=== PATIENT | male | born 1980 | race American Indian/Alaskan Native ===

== ENCOUNTER 2018-01-31 16:03 | Emergency (ER) | payer SELFPAY ==
[2018-01-31] MEDS ORDERED: ADRENALINE P/F SUB-Q ONE (16:13)
[2018-01-31] MEDS ORDERED: BENADRYL IV ONE (16:13)
[2018-01-31] MEDS ORDERED: HYDROCORTISONE CR TP ONE (16:13)
[2018-01-31] MEDS ORDERED: PEPCID IV ONE (16:14)
[2018-01-31] MEDS ORDERED: SOLU-Medrol IV ONE ×2 (16:14→20:08)
[2018-01-31] MEDS ORDERED: MOTRIN PO ONE ×2 (16:15→16:16)
--- NOTE | 2018-01-31 16:19 | Emergency Department Report ---
ED Allergic Reaction HPI - General Stated complaint: ALLERGIC REACTION Time Seen by Provider: 01/31/18 16:09 Source: patient, EMS - History of Present Illness Initial Comments: Mr. Magana is 37 yo male healthy without significant past medical history presents with allergic reaction. While performing yard work, he He was stung yellow jackets on his face and back. He has severe left facial swelling involving his lip and cheek. He has hives on his back. Multiple stings at least 10 No hx of allergic reaction or anaphylaxis to insect stings or food. Mild pain MD Complaint: allergic reaction, hives, facial swelling -: Sudden, minutes(s) Exposure: insect bite Symptoms: rash, facial swelling, lip swelling, orolingual swelling. denies: difficulty swallowing, difficulty breathing, hoarseness, syncopy, dizziness, nausea, vomiting, abdominal pain Severity: severe Treatment Prior to Arrival: benadryl Previous Allergy History: none - Related Data Previous Rx's Medication Instructions Recorded Last Taken Type EPINEPHrine [Epipen] 0.3 mg IJ ONCE PRN #1 auto.injct 01/31/18 Unknown Rx Famotidine 20 mg PO BID 3 Days #6 tablet 01/31/18 Unknown Rx diphenhydrAMINE [Benadryl CAP] 25 mg PO Q6HR 3 Days #12 capsule 01/31/18 Unknown Rx predniSONE [Deltasone] 3 tab PO QDAY 3 Days #9 tab 01/31/18 Unknown Rx Allergies Allergy/AdvReac Type Severity Reaction Status Date / Time No Known Allergies Allergy Unverified 08/30/15 17:49 ED Review of Systems ROS: Stated complaint: ALLERGIC REACTION Other details as noted in HPI Comment: All other systems reviewed and negative Respiratory: denies: cough Cardiovascular: denies: chest pain ED Past Medical Hx - Past Medical History Previous Medical History?: No - Surgical History Past Surgical History?: No - Social History Smoking Status: Never Smoker Substance Use Type: Alcohol, Marijuana 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 - Medications Home Medications: Home Medications Medication Instructions Recorded Confirmed Last Taken Type EPINEPHrine [Epipen] 0.3 mg IJ ONCE PRN #1 auto.injct 01/31/18 Unknown Rx Famotidine 20 mg PO BID 3 Days #6 tablet 01/31/18 Unknown Rx diphenhydrAMINE [Benadryl CAP] 25 mg PO Q6HR 3 Days #12 capsule 01/31/18 Unknown Rx predniSONE [Deltasone] 3 tab PO QDAY 3 Days #9 tab 01/31/18 Unknown Rx ED Physical Exam - General General appearance: alert, in no apparent distress, other (severe facial swelling involving upper lip and left cheek no stinger note) - Head Head exam: Present: atraumatic, normocephalic - Eye Eye exam: Present: normal appearance - ENT ENT exam: Present: mucous membranes moist - Neck Neck exam: Present: normal inspection. Absent: tenderness, meningismus - Respiratory Respiratory exam: Present: normal lung sounds bilaterally. Absent: respiratory distress, wheezes, rales, rhonchi, accessory muscle use, decreased breath sounds , prolonged expiratory - Cardiovascular Cardiovascular Exam: Present: regular rate, normal rhythm, normal heart sounds. Absent: bradycardia, tachycardia, systolic murmur, diastolic murmur, rubs, gallop - GI/Abdominal GI/Abdominal exam: Present: soft, normal bowel sounds. Absent: distended, tenderness, guarding, rebound - Rectal Rectal exam: Present: deferred - Extremities Exam Extremities exam: Present: normal inspection - Back Exam Back exam: Present: normal inspection - Neurological Exam Neurological exam: Present: alert, oriented X3 - Psychiatric Psychiatric exam: Present: normal affect, normal mood - Skin Skin exam: Present: warm, dry, other (urticaria localized to the back no urticaria involving arms/leg/anterior torso). Absent: rash - Other Other exam information: one area of redness at left forerm ED Course Vital Signs 01/31/18 01/31/18 01/31/18 16:10 16:18 16:30 Temperature 98.4 F 98 F Pulse Rate 84 79 Respiratory 14 18 14 Rate Blood Pressure 129/78 Blood Pressure [Left] O2 Sat by Pulse 98 98 98 Oximetry 01/31/18 01/31/18 16:45 17:00 Temperature Pulse Rate 78 75 Respiratory 16 16 Rate Blood Pressure Blood Pressure 131/66 123/75 [Left] O2 Sat by Pulse 98 100 Oximetry ED Medical Decision Making - Medical Decision Making allergic reaction to insect yellow hornet stings, no hypotension or airway involvement, has severe localized swelling at the site of the stings, has urticaria at the back, localized reaction multiple insect stings with localized allergic reaction, swelling of face did improve, no airway involvement rx: prednisone, famotidine, benadryl, epipen Critical care attestation.: If time is entered above; I have spent that time in minutes in the direct care of this critically ill patient, excluding procedure time. ED Disposition Clinical Impression: Allergic reaction to insect sting Disposition: [id number]-01 TO HOME OR SELFCARE Is pt being admited?: No Does the pt Need Aspirin: No Condition: Stable Instructions: Urticaria (ED) Prescriptions: diphenhydrAMINE [Benadryl CAP] 25 mg PO Q6HR 3 Days #12 capsule EPINEPHrine [Epipen] 0.3 mg IJ ONCE PRN #1 auto.injct PRN Reason: Allergic Reaction Famotidine 20 mg PO BID 3 Days #6 tablet predniSONE [Deltasone] 3 tab PO QDAY 3 Days #9 tab Time of Disposition: 20:11
[2018-01-31] MEDS ORDERED: ADRENALIN ONE (17:37)
[2018-01-31] MEDS ORDERED: NORCO 5/325 PO ONE (20:09)
[2018-01-31 20:27] VITALS: BP 103/73
== END 2018-01-31 20:27 | disposition home or self-care (01) ==
LOC: ED 16:03
DX: T63.481A Toxic effect of venom of other arthropod, accidental (unintentional), initial encounter (principal); F12.10 Cannabis abuse, uncomplicated; Y92.017 Garden or yard in single-family (private) house as the place of occurrence of the external cause
CPT/HCPCS: 96372; 96374; 96375; 96376; 99283; J0171; J1200; J2930; A6250

== ENCOUNTER 2019-02-03 19:59 | Emergency (ER) | payer SELFPAY ==
[2019-02-03] MEDS ORDERED: CARAFATE PO ONE (20:38)
[2019-02-03] MEDS ORDERED: TYLENOL PO ONE (20:38)
[2019-02-03] MEDS ORDERED: TORADOL IV ONE (20:38)
[2019-02-03] MEDS ORDERED: PEPCID IV ONE (20:38)
--- NOTE | 2019-02-03 20:39 | Emergency Department Report ---
ED Chest Pain HPI - General Chief Complaint: Chest Pain Stated Complaint: CHEST PAIN Time Seen by Provider: 02/03/19 20:15 Source: patient, EMS (ems notes not available at time of chart dictation), RN notes reviewed Mode of arrival: Stretcher Limitations: No Limitations - History of Present Illness Initial Comments: This is a pleasant 38-year-old gentleman, not known to this provider previously. The patient does not have a local primary care doctor. He denies past medical history. Patient presents to the ER with a complaint of nontraumatic left-sided chest wall pain. This pain is intermittent. It has been present approximately 40 minutes prior to arrival. It does not radiate to the back, arms and neck. There is no vomiting, diaphoresis or shortness of breath. There is no recent aspirin consumption. The patient denies DVT, pulmonary embolism risk factors. 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 He denies additional complaints at this time, with the exception of chronic nontraumatic left-sided knee aching and pain. There is no family history of heart disease, DVT, pulmonary embolus and that he is aware of. He reports having similar pain like this a few months ago, but did not seek medical attention as it resolved on its own. He does not have any additional complaints at this time. MD Complaint: chest pain -: Gradual Onset: during rest Pain Location: left chest Pain Radiation: none Severity scale (0 -10): 0 Quality: aching Consistency: intermittent Improves With: nothing Worsens With: nothing Aspirin use within the Past 7 Days: (0) No - Related Data On Oral Contraceptives: No Previous Rx's Medication Instructions Recorded Last Taken Type EPINEPHrine [Epipen] 0.3 mg IJ ONCE PRN #1 auto.injct 01/31/18 Unknown Rx Famotidine 20 mg PO BID 3 Days #6 tablet 01/31/18 Unknown Rx diphenhydrAMINE [Benadryl CAP] 25 mg PO Q6HR 3 Days #12 capsule 01/31/18 Unknown Rx predniSONE [Deltasone] 3 tab PO QDAY 3 Days #9 tab 01/31/18 Unknown Rx Aspirin [Aspirin BABY CHEW TAB] 81 mg PO QDAY #30 tab.chew 02/03/19 Unknown Rx Famotidine [Pepcid] 20 mg PO BID #30 tablet 02/03/19 Unknown Rx Ibuprofen [Motrin] 600 mg PO Q8H PRN #30 tablet 02/03/19 Unknown Rx Allergies Allergy/AdvReac Type Severity Reaction Status Date / Time No Known Allergies Allergy Unverified 08/30/15 17:49 Heart Score - HEART Score History: Slightly suspicious EKG: Non-specific Age: < 45 Risk factors: No known risk factors Troponin: < normal limit HEART Score: 1 - Critical Actions Critical Actions: 0-3 pts:0.9-1.7%risk of adverse cardiac event.Candidate for discharge ED Review of Systems ROS: Stated complaint: CHEST PAIN Other details as noted in HPI Constitutional: denies: fever Eyes: denies: eye discharge ENT: denies: epistaxis Respiratory: denies: cough, shortness of breath Cardiovascular: chest pain Gastrointestinal: denies: abdominal pain, nausea, vomiting Musculoskeletal: arthralgia Skin: denies: lesions Neurological: denies: weakness Psychiatric: denies: anxiety ED Past Medical Hx - Past Medical History Previous Medical History?: Yes Additional medical history: foliculitis, leg cramps - Surgical History Past Surgical History?: No - Social History Smoking Status: Former Smoker Substance Use Type: None - Medications Home Medications: Home Medications Medication Instructions Recorded Confirmed Last Taken Type EPINEPHrine [Epipen] 0.3 mg IJ ONCE PRN #1 auto.injct 01/31/18 Unknown Rx Famotidine 20 mg PO BID 3 Days #6 tablet 01/31/18 Unknown Rx diphenhydrAMINE [Benadryl CAP] 25 mg PO Q6HR 3 Days #12 capsule 01/31/18 Unknown Rx predniSONE [Deltasone] 3 tab PO QDAY 3 Days #9 tab 01/31/18 Unknown Rx Aspirin [Aspirin BABY CHEW TAB] 81 mg PO QDAY #30 tab.chew 02/03/19 Unknown Rx Famotidine [Pepcid] 20 mg PO BID #30 tablet 02/03/19 Unknown Rx Ibuprofen [Motrin] 600 mg PO Q8H PRN #30 tablet 02/03/19 Unknown Rx ED Physical Exam - General Limitations: No Limitations General appearance: alert, in no apparent distress - Head Head exam: Present: atraumatic, normocephalic - Eye Eye exam: Present: normal appearance, EOMI. Absent: nystagmus - ENT ENT exam: Present: normal exam, normal orophraynx, mucous membranes moist, normal external ear exam - Neck Neck exam: Present: normal inspection, full ROM. Absent: tenderness, meningismus - Respiratory Respiratory exam: Present: normal lung sounds bilaterally, chest wall tenderness. Absent: respiratory distress, wheezes, rales, rhonchi, stridor - Cardiovascular Cardiovascular Exam: Present: normal rhythm, bradycardia, normal heart sounds. Absent: tachycardia, irregular rhythm, systolic murmur, diastolic murmur, rubs, gallop - GI/Abdominal GI/Abdominal exam: Present: soft. Absent: distended, tenderness, guarding, rebound, rigid, pulsatile mass - Rectal Rectal exam: Present: deferred - Extremities Exam Extremities exam: Present: normal inspection, full ROM, other (2+ pulses noted in the bilateral upper, lower extremities. Compartments soft. No long bony tenderness. The pelvis is stable.). Absent: pedal edema, joint swelling, calf tenderness - Back Exam Back exam: Present: normal inspection, full ROM. Absent: tenderness, CVA tenderness (R), CVA tenderness (L), paraspinal tenderness, vertebral tenderness - Neurological Exam Neurological exam: Present: alert, oriented X3, normal gait, other (Extraocular movements intact. Tongue midline. No facial droop. Facial sensation intact to light touch in the V1, V2, V3 distribution bilaterally. 5 and 5 strength in 4 extremities.. Sensation is intact to light touch in 4 extremities.). Absent: motor sensory deficit - Psychiatric Psychiatric exam: Present: flat affect - Skin Skin exam: Present: warm, dry, intact, normal color. Absent: rash ED Course Vital Signs 02/03/19 02/03/19 02/03/19 20:12 21:04 21:05 Temperature 98.2 F Pulse Rate 60 58 L Respiratory 16 13 16 Rate Blood Pressure 107/64 107/64 Blood Pressure 107/64 [Left] O2 Sat by Pulse 97 97 Oximetry 02/03/19 02/03/19 02/03/19 21:06 22:00 23:00 Temperature Pulse Rate 52 L 53 L Respiratory 16 11 L 12 Rate Blood Pressure 107/64 102/65 Blood Pressure [Left] O2 Sat by Pulse 97 97 Oximetry - Reevaluation(s) Reevaluation #1: 02/03/19 21:23 Differential diagnosis, including but not limited to: GERD, gastritis, hiatal hernia, pneumonia, costochondritis, acute coronary syndrome Assessment and plan: 38-year-old gentleman, not tachycardic, not hypoxic, not tachypnea, low risk by well's criteria, no thromboembolic risk factors, perc negative, low risk for major adverse cardiac event as per the heart score, with chest pain. Objective laboratory studies unremarkable. Physical exam unremarkable. EKG nonspecific. We will observe patient on a quality assurance monitor body, repeat troponin, repeat EKG. This institution has a policy/protocol in place whereby patients who are low risk for major adverse cardiac event may follow up with outpatient cardiology in an expedited fashion to complete the risk stratification. Explained to patient that if objective testing unremarkable in the ER, he would need to follow up with outpatient cardiology to complete his r isk stratification. The patient has verbalized understanding. Reevaluation #2: 02/03/19 22:06 Patient resting comfortably and in no acute distress. X-ray unremarkable, lab oratory studies unremarkable. Repeat EKG, repeat troponin pending. 02/03/19 23:01 No acute distress. awaiting repeat troponin and EKG. Reevaluation #3: 02/04/19 00:28 Troponin negative 2. EKG unchanged 2. Patient reevaluated multiple times. He endorses improvement of his symptoms. He endorses readiness for discharge. On repeat examinations, resting comfortably, and stretcher, and in no acute distress. EVELYN score - Evelyn Score Age > 65: (0) No Aspirin use within the Past 7 Days: (0) No 3 or more CAD Risk Factors: (0) No 2 or more Angina events in past 24 hrs: (0) No Known CAD with more than 50% Stenosis: (0) No Elevated Cardiac Markers: (0) No ST Deviation Greater than 0.5mm: (0) No EVELYN Score: 0 ED Medical Decision Making - Lab Data Result diagrams: 02/03/19 20:44 02/03/19 20:44 Vital Signs 02/03/19 02/03/19 02/03/19 20:12 21:05 21:06 Temperature 98.2 F Pulse Rate 60 Respiratory 16 16 16 Rate Blood Pressure 107/64 Blood Pressure 107/64 [Left] O2 Sat by Pulse 97 Oximetry Lab Results 02/03/19 02/03/19 Range/Units 20:44 20:44 WBC 4.9 (4.5-11.0) K/mm3 RBC 4.33 (3.65-5.03) M/mm3 Hgb 13.9 (11.8-15.2) gm/dl Hct 41.3 (35.5-45.6) % MCV 95 H (84-94) fl MCH 32 (28-32) pg MCHC 34 (32-34) % RDW 12.4 L (13.2-15.2) % Plt Count 200 (140-440) K/mm3 Sodium 138 (137-145) mmol/L Potassium 3.8 (3.6-5.0) mmol/L Chloride 104.4 (98-107) mmol/L Carbon Dioxide 24 (22-30) mmol/L Anion Gap 13 mmol/L BUN 13 (9-20) mg/dL Creatinine 1.1 (0.8-1.5) mg/dL Estimated GFR > 60 ml/min BUN/Creatinine Ratio 12 % Glucose 98 (75-100) mg/dL Calcium 8.3 L (8.4-10.2) mg/dL Magnesium 2.00 (1.7-2.3) mg/dL Total Creatine Kinase 696 H (55-170) units/L Troponin T < 0.010 (0.00-0.029) ng/mL - EKG Data -: EKG Interpreted by Me EKG shows normal: sinus rhythm Rate: bradycardia - EKG Data When compared to previous EKG there are: previous EKG unavailable 02/03/19 21:23 Is no prior EKG available for comparison. This is a sinus rhythm, bradycardia, borderline rightward axis, high left ventricular voltage, question juvenile T- wave inversion V3, there is no prior EKG available for comparison, the EKG is not consistent with ST elevation myocardial infarction. - Radiology Data Radiology results: pending, image reviewed interpreted by me: X-ray of the chest, 2 views, negative for acute disease, question mild hyperinflated lungs Critical care attestation.: If time is entered above; I have spent that time in minutes in the direct care of this critically ill patient, excluding procedure time. ED Disposition Clinical Impression: Chest pain Qualifiers: Chest pain type: unspecified Qualified Code(s): R07.9 - Chest pain, unspecified Disposition: - TO HOME OR SELFCARE Is pt being admited?: No Does the pt Need Aspirin: No Condition: Stable Instructions: Chest Pain (ED) Additional Instructions: Take medications as needed/directed. Follow up with an outpatient sustainability purchasing agent within the next 3-5 days. Rest, avoid heavy lifting, and participate in physical activities as tolerated. Return to the emergency room right away with [facility], worsened or different symptoms, or symptoms not present on the initial emergency room evaluation. Prescriptions: Aspirin [Aspirin BABY CHEW TAB] 81 mg PO QDAY #30 tab.chew Ibuprofen [Motrin] 600 mg PO Q8H PRN #30 tablet PRN Reason: Pain Famotidine [Pepcid] 20 mg PO BID #30 tablet Referrals: TYRONE KIDD MD [Staff Physician] - 3-5 Days [facility] [Provider Group] - 3-5 Days
[2019-02-03 20:50] LABS: Hematocrit 41.3 % (35.5-45.6); Hemoglobin 13.9 gm/dl (11.8-15.2); Mean Corpuscular HGB Conc 34 % (32-34); Mean Corpuscular Volume 95 fl (84-94); Platelet Count 200 K/mm3 (140-440); Red Blood Count 4.33 M/mm3 (3.65-5.03); Red Cell Distribution Width 12.4 % (13.2-15.2)
[2019-02-03 21:08] LABS: BUN/Creatinine Ratio 12; Blood Urea Nitrogen 13 mg/dL (9-20); Calcium 8.3 mg/dL (8.4-10.2); Hemolysis Index 13
--- NOTE | 2019-02-03 21:32 | XRay Report ---
CHEST 2 VIEWS INDICATION: Chest Pain. COMPARISON: none FINDINGS: Support devices: None. Heart: Within normal limits. Lungs: No acute air space or interstitial disease. Pleura: No significant pleural effusion. No pneumothorax. Additional findings: None. IMPRESSION: 1. No acute findings. Signer Name: Sharath Garcia MD Signed: 02/03/2019 9:28 PM Workstation Name: [id number]
[2019-02-04 01:02] VITALS: BP 101/64
== END 2019-02-04 01:02 | disposition home or self-care (01) ==
LOC: ED 19:59
DX: R07.89 Other chest pain (principal); L73.9 Follicular disorder, unspecified; Z87.891 Personal history of nicotine dependence; Z79.82 Long term (current) use of aspirin; Z79.899 Other long term (current) drug therapy
CPT/HCPCS: 36415; 71046; 80048; 82550; 83735; 84484; 85027; 93005; 93010; 96374; 96375; 99285; J1885